=== PATIENT | female | born 1950 | race Caucasian/White ===

== ENCOUNTER 2020-03-06 14:11 | Emergency (ER) | payer MEDICARE, OTHER ==
[~2020-03-06 14:11] MED LIST: CEFDINIR300 MG PO; COZAAR100 MG PO; HYDRALAZINE25 MG PO; INSULIN PEN; KEFLEX250 MG PO; LANTUS **100 UNITS/ SC; LOSARTAN-HCTZ1 EAC1 PO; METFORMIN HCL500 MG PO; NORVASC5 MG PO; PROZAC20 MG PO; TOPROL XL100 MG PO; ULTRA-LIGHT RO1 EACH XX
[2020-03-06 15:34] LABS: BASOPHIL 0.5 % (0-2); EOSINOPHIL 1.7 % (0-7); HCT 37.1 % (37.0-47.0); HGB 12.4 g/dl (12.5-16.0); LYMPHOCYTE 14.2 % (15-48); MCH 28.7 pg (25.0-31.0); MCHC 33.4 g/dL (32.0-36.0); MCV 85.9 fL (78.0-100.0); MONOCYTE 7.4 % (0-12); MPV 8.5 fL (6.0-9.5); NEUTROPHIL 75.8 % (41-80); NRBC 0; PLT 324 K/uL (150-400); RBC 4.32 M/uL (4.20-5.40); RDW 13.9 % (11.5-14.0); WBC 8.2 K/uL (4.0-10.5)
[2020-03-06 15:53] LABS: ALBUMIN 2.6 g/dL (3.4-5.0); BILIRUBIN - TOTAL 0.4 mg/dL (0.2-1.0); CREATININE 1.04 mg/dL (0.51-0.95); GLOBULIN (CALCULATION) 4.2 g/dL; POTASSIUM 3.5 mmol/L (3.5-5.1); TOTAL PROTEIN 6.8 g/dL (6.4-8.2)
[2020-03-06 17:21] LABS: BILIRUBIN NEGATIVE (NEGATIVE); BLOOD NEGATIVE Ery/uL (NEGATIVE); CLARITY CLEAR (CLEAR); COLOR YELLOW (YELLOW); GLUCOSE (U) NORMAL (NORMAL); LEUKOCYTES NEGATIVE Leu/uL (NEGATIVE); NITRITE NEGATIVE (NEGATIVE); PROTEIN 2+ mg/dL (NEGATIVE); SPECIFIC GRAVITY 1.025 (1.001-1.030); UROBILINOGEN 0.2 mg/dL (0.2-1.0); pH 6.5 (5.0-9.0)
[2020-03-06 17:30] LABS: MUCOUS MODERATE; SQUAMOUS EPITHELIAL CELLS 20-50
== END 2020-03-06 18:10 | disposition home or self-care (01) ==
LOC: FER 14:11
PROVIDERS: Nurse Practitioner Family
DX: R42 Dizziness and giddiness (principal); E11.9 Type 2 diabetes mellitus without complications; I10 Essential (primary) hypertension; Z88.0 Allergy status to penicillin; Z88.8 Allergy status to other drugs, medicaments and biological substances; Z87.81 Personal history of (healed) traumatic fracture
CPT/HCPCS: 36415; 70450; 72125; 80053; 81001; 85025; 93005

== ENCOUNTER 2020-05-04 23:13 | Inpatient (IN) | payer MEDICARE, OTHER ==
[2020-05-05 01:09] LABS: BASOPHIL 0.6 % (0-2); EOSINOPHIL 2.3 % (0-7); HGB 11.6 g/dl (12.5-16.0); LYMPHOCYTE 19.4 % (15-48); MCHC 32.2 g/dL (32.0-36.0); MCV 86.7 fL (78.0-100.0); MONOCYTE 7.3 % (0-12); NEUTROPHIL 70.1 % (41-80); NRBC 0; PLT 340 K/uL (150-400); RBC 4.15 M/uL (4.20-5.40); RDW 13.7 % (11.5-14.0); WBC 6.6 K/uL (4.0-10.5)
[2020-05-05 01:47] LABS: ALBUMIN 2.5 g/dL (3.4-5.0); BILIRUBIN - TOTAL 0.2 mg/dL (0.2-1.0); BUN/CREAT RATIO (CALC) 21.5 RATIO; CREATININE 1.07 mg/dL (0.51-0.95); GLOBULIN (CALCULATION) 3.8 g/dL; MAGNESIUM 1.9 mg/dL (1.8-2.4); PHOSPHORUS 2.6 mg/dL (2.6-4.7); POTASSIUM 4.2 mmol/L (3.5-5.1); TOTAL PROTEIN 6.3 g/dL (6.4-8.2)
[2020-05-05 05:06] LABS: BILIRUBIN NEGATIVE (NEGATIVE); BLOOD TRACE-INTACT Ery/uL (NEGATIVE); CLARITY CLEAR (CLEAR); COLOR YELLOW (YELLOW); GLUCOSE (U) 3+ mg/dL (NORMAL); LEUKOCYTES NEGATIVE Leu/uL (NEGATIVE); NITRITE NEGATIVE (NEGATIVE); PROTEIN 2+ mg/dL (NEGATIVE); UROBILINOGEN 0.2 mg/dL (0.2-1.0)
[2020-05-05 05:08] LABS: LDH 183 U/L (81-234)
[2020-05-05 06:41] LABS: CORONAVIRUS 2019 SARS-COV-2 NEGATIVE (NEGATIVE); INFLUENZA A NAA NEGATIVE (NEGATIVE)
[2020-05-05 06:42] LABS: BUN/CREAT RATIO (CALC) 24.6 RATIO; CREATININE 1.14 mg/dL (0.51-0.95); POTASSIUM 3.8 mmol/L (3.5-5.1)
[2020-05-05 07:55] LABS: AMPHETAMINES NEGATIVE (NEGATIVE); BARBITURATES NEGATIVE (NEGATIVE); ECSTASY (MDMA) NEGATIVE (NEGATIVE); MARIJUANA (THC) NEGATIVE (NEGATIVE); METHADONE NEGATIVE (NEGATIVE); OPIATES NEGATIVE (NEGATIVE); OXYCODONE NEGATIVE (NEGATIVE)
[2020-05-05 10:29] LABS: LACTIC ACID 2.8 mmol/L (0.4-1.9)
[2020-05-05] MEDS ORDERED: CYMBALTA 30MG C30 MG PO (14:20)
[2020-05-05] MEDS ORDERED: KEFLEX250 MG PO (14:21)
[2020-05-05] MEDS ORDERED: LANTUS SOL100 UNIT/1 SC (14:22)
[2020-05-05] MEDS ORDERED: LOSARTAN-HCTZ1 EAC1 PO (14:23)
[2020-05-05] MEDS ORDERED: HYDRALAZINE 50M50 MG PO (14:23)
[2020-05-05] MEDS ORDERED: WELLBUTRIN XL150 MG PO (14:24)
[2020-05-05] MEDS ORDERED: PROZAC20 MG PO (14:24)
[2020-05-05 18:12] LABS: BUN/CREAT RATIO (CALC) 22.9 RATIO; CREATININE 0.96 mg/dL (0.51-0.95); POTASSIUM 3.6 mmol/L (3.5-5.1)
[2020-05-06 07:05] LABS: BASOPHIL 0.5 % (0-2); EOSINOPHIL 1.8 % (0-7); HCT 26.3 % (37.0-47.0); HGB 8.4 g/dl (12.5-16.0); LYMPHOCYTE 26.1 % (15-48); MCH 28.2 pg (25.0-31.0); MCHC 31.9 g/dL (32.0-36.0); MCV 88.3 fL (78.0-100.0); MONOCYTE 9.1 % (0-12); NEUTROPHIL 62.1 % (41-80); NRBC 0; PLT 273 K/uL (150-400); RBC 2.98 M/uL (4.20-5.40); RETICULOCYTE COUNT 2.3 % (1.0-2.0); WBC 9.8 K/uL (4.0-10.5)
[2020-05-06 07:26] LABS: IRON % SATURATION 11.2 %SAT (20-50)
[2020-05-06 07:53] LABS: BILIRUBIN - TOTAL 0.3 mg/dL (0.2-1.0); BUN/CREAT RATIO (CALC) 18.5 RATIO; CREATININE 0.92 mg/dL (0.51-0.95); GLOBULIN (CALCULATION) 3.1 g/dL; MAGNESIUM 1.6 mg/dL (1.8-2.4); PHOSPHORUS 2.6 mg/dL (2.6-4.7); POTASSIUM 3.6 mmol/L (3.5-5.1); TOTAL PROTEIN 5.1 g/dL (6.4-8.2)
--- NOTE | 2020-05-07 09:26 | NUR ---
05/07/20 Ms. Rausch lives with her sister. She receives [facility] through [facility]; [facility]. They have provided a reader / projector. She also receives [employer]. Ms. Lubin has a cane, wc, and rw. - She was provided with information re: [facility] and diabetic education resources.
[2020-05-08 06:57] LABS: BASOPHIL 0.5 % (0-2); EOSINOPHIL 2.5 % (0-7); HCT 25.8 % (37.0-47.0); HGB 8.4 g/dl (12.5-16.0); LYMPHOCYTE 28.2 % (15-48); MCH 28.3 pg (25.0-31.0); MCHC 32.6 g/dL (32.0-36.0); MCV 86.9 fL (78.0-100.0); NEUTROPHIL 59.6 % (41-80); NRBC 0; PLT 300 K/uL (150-400); RBC 2.97 M/uL (4.20-5.40); RDW 13.7 % (11.5-14.0); WBC 8.7 K/uL (4.0-10.5)
[2020-05-08 07:13] LABS: BUN/CREAT RATIO (CALC) 18.6 RATIO; CREATININE 1.02 mg/dL (0.51-0.95); POTASSIUM 3.7 mmol/L (3.5-5.1)
[2020-05-08] MEDS ORDERED: COZAAR100 MG PO (11:56)
== END 2020-05-08 14:07 | disposition home or self-care (01) | DRG 637 ==
LOC: FER 23:13 → FICU 05-05 10:52 → FMS 05-05 10:52 → FICU 05-06 09:03 → FMS 05-06 09:55
PROVIDERS: Emergency Medicine; Emergency Medicine Emergency Medical Services; Internal Medicine; ADMIT Internal Medicine
DX: E11.00 Type 2 diabetes mellitus with hyperosmolarity without nonketotic hyperglycemic-hyperosmolar coma (NKHHC) (principal); I21.4 Non-ST elevation (NSTEMI) myocardial infarction; N17.9 Acute kidney failure, unspecified; Z68.42 Body mass index [BMI] 45.0-49.9, adult; Z20.822 Contact with and (suspected) exposure to COVID-19; E66.01 Morbid (severe) obesity due to excess calories; H54.7 Unspecified visual loss; D64.9 Anemia, unspecified; I16.0 Hypertensive urgency; R53.1 Weakness; E86.0 Dehydration; G89.29 Other chronic pain; I10 Essential (primary) hypertension; R25.2 Cramp and spasm; Z88.0 Allergy status to penicillin; Z88.8 Allergy status to other drugs, medicaments and biological substances; Z79.4 Long term (current) use of insulin; Z79.899 Other long term (current) drug therapy; W19.XXXA Unspecified fall, initial encounter
CPT/HCPCS: 36415; 36600; 70450; 71045; 71275; 72131; 72192; 73552; 73590; 80048; 80053; 80305; 81001; 82009; 82550; 82607; 82728; 82803; 82962; 83036; 83540; 83550; 83605; 83615; 83735; 83880; 84100; 84145; 84484; 85025; 85379; 87040; 87088; 93005; 94010; 94762; 97110; 97116; 97163; 97167; 97530; 97530-GP; 97535; J1650; J1885; J3360; J3475; J3480; J7030; J7120; Q9967; U0002

== ENCOUNTER 2020-05-09 20:09 | Day surgery (SDCO) | payer MEDICARE, OTHER ==
[~2020-05-09] VITALS: Ht 170.2 cm; Wt 134.9 kg
[~2020-05-09 20:09] MED LIST changes: +CYMBALTA 30MG C30 MG PO; +HYDRALAZINE 50M50 MG PO; +LANTUS SOL100 UNIT/1 SC; +WELLBUTRIN XL150 MG PO
[2020-05-09 23:12] LABS: BASOPHIL 0.4 % (0-2); EOSINOPHIL 1.7 % (0-7); HCT 28.1 % (37.0-47.0); HGB 9.1 g/dl (12.5-16.0); LYMPHOCYTE 15.5 % (15-48); MCH 28.9 pg (25.0-31.0); MCHC 32.4 g/dL (32.0-36.0); MCV 89.2 fL (78.0-100.0); MONOCYTE 7.2 % (0-12); MPV 8.9 fL (6.0-9.5); NEUTROPHIL 74.6 % (41-80); NRBC 0; PLT 392 K/uL (150-400); RBC 3.15 M/uL (4.20-5.40)
[2020-05-09 23:29] LABS: ALBUMIN 2.3 g/dL (3.4-5.0); BILIRUBIN - TOTAL 0.6 mg/dL (0.2-1.0); BUN/CREAT RATIO (CALC) 26.1 RATIO; CREATININE 1.11 mg/dL (0.51-0.95); GLOBULIN (CALCULATION) 3.8 g/dL; POTASSIUM 4.3 mmol/L (3.5-5.1); TOTAL PROTEIN 6.1 g/dL (6.4-8.2)
[2020-05-10 00:57] LABS: BILIRUBIN NEGATIVE (NEGATIVE); BLOOD 1+ Ery/uL (NEGATIVE); CLARITY CLEAR (CLEAR); COLOR YELLOW (YELLOW); GLUCOSE (U) TRACE mg/dL (NORMAL); LEUKOCYTES 1+ Leu/uL (NEGATIVE); NITRITE NEGATIVE (NEGATIVE); PROTEIN 3+ mg/dL (NEGATIVE); SPECIFIC GRAVITY >=1.030 (1.001-1.030); UROBILINOGEN 0.2 mg/dL (0.2-1.0)
[2020-05-10 01:04] LABS: BACTERIA 1+; URINARY WBC TNTC
[2020-05-10] MEDS ORDERED: METFORMIN HCL500 MG PO (02:37)
[2020-05-10 07:58] LABS: BASOPHIL 0.5 % (0-2); EOSINOPHIL 2.5 % (0-7); HCT 23.8 % (37.0-47.0); HGB 7.8 g/dl (12.5-16.0); LYMPHOCYTE 26.3 % (15-48); MCH 28.8 pg (25.0-31.0); MCHC 32.8 g/dL (32.0-36.0); MCV 87.8 fL (78.0-100.0); MONOCYTE 8.6 % (0-12); MPV 8.6 fL (6.0-9.5); NEUTROPHIL 61.7 % (41-80); NRBC 0; PLT 337 K/uL (150-400); RBC 2.71 M/uL (4.20-5.40); RDW 13.8 % (11.5-14.0); WBC 7.7 K/uL (4.0-10.5)
[2020-05-10 08:22] LABS: BUN/CREAT RATIO (CALC) 25.2 RATIO; CREATININE 1.07 mg/dL (0.51-0.95); POTASSIUM 3.8 mmol/L (3.5-5.1)
--- NOTE | 2020-05-10 15:58 | NUR ---
05/10/20 Ms. Lubin was discharged home on 05/08 and returned after having a fall on 05/10/20. She has requested a SNF or acute care placement. [facility]errals [facility] to [facility] [place] and [facility] SNF and acute ted.
[2020-05-11 05:45] LABS: BASOPHIL 0.4 % (0-2); EOSINOPHIL 2.6 % (0-7); HCT 23.2 % (37.0-47.0); HGB 7.7 g/dl (12.5-16.0); LYMPHOCYTE 30.7 % (15-48); MCH 29.3 pg (25.0-31.0); MCHC 33.2 g/dL (32.0-36.0); MCV 88.2 fL (78.0-100.0); MONOCYTE 9.6 % (0-12); MPV 8.8 fL (6.0-9.5); NEUTROPHIL 56.4 % (41-80); NRBC 0; PLT 372 K/uL (150-400); RBC 2.63 M/uL (4.20-5.40); RDW 13.9 % (11.5-14.0); WBC 7.4 K/uL (4.0-10.5)
[2020-05-11 06:03] LABS: CREATININE 1.16 mg/dL (0.51-0.95); POTASSIUM 3.8 mmol/L (3.5-5.1)
--- NOTE | 2020-05-13 09:23 | NUR ---
05/13/20 [facility] has accepted patient for admission today. Patient reports her friend Tatiana will provide transportation. A report was given to Dr. Zimmer and Etelvina MS RN.
[2020-05-13] MEDS ORDERED: POLY-IRON150 MG PO (14:31)
--- NOTE | 2020-05-13 15:10 | NUR ---
CALLED AND SPOKE TO SHIV VILLALBA AT [facility] TO GIVE REPORT ON PATIENT GAVE FULL REPORT ALL QUESTIONS WERE ANSWERED PRIOR TO HANGING UP PHONE CALL. STATED I WOULD BE FAXING OVER THE DISCHARGE SUMMARY AND COPIED CHART
--- NOTE | 2020-05-13 16:02 | NUR ---
CALLED AND SPOKE TO SHIV VILLALBA TO VERIFY FAXED OVER INFORMATION AND NOTIFY OF PATIENT LEAVING THE FLOOR
== END 2020-05-13 16:07 ==
LOC: FER 20:09 → FMS 05-10 00:54
PROVIDERS: Emergency Medicine; Nurse Practitioner; ADMIT Internal Medicine
DX: N17.9 Acute kidney failure, unspecified (principal); N18.30 Chronic kidney disease, stage 3 unspecified; N30.00 Acute cystitis without hematuria; I12.9 Hypertensive chronic kidney disease with stage 1 through stage 4 chronic kidney disease, or unspecified chronic kidney disease; E11.22 Type 2 diabetes mellitus with diabetic chronic kidney disease; D50.9 Iron deficiency anemia, unspecified; Z79.4 Long term (current) use of insulin; Z98.890 Other specified postprocedural states; Z88.8 Allergy status to other drugs, medicaments and biological substances; Z88.0 Allergy status to penicillin; Z86.19 Personal history of other infectious and parasitic diseases; Z79.899 Other long term (current) drug therapy; Z20.822 Contact with and (suspected) exposure to COVID-19
CPT/HCPCS: 36415; 73020; 73070; 80048; 80053; 81001; 82962; 85025; 87076; 87088; 87186; 97110; 97116; 97162; 97166; 97530; 97530-GP; 97535; G0378; J1650; J1956; J2916; J3490; J7030

== ENCOUNTER 2020-06-27 10:22 | Emergency (ER) | payer MEDICARE, OTHER ==
[~2020-06-27 10:22] MED LIST changes: +POLY-IRON150 MG PO
== END 2020-06-27 14:43 | disposition home or self-care (01) ==
LOC: FER 10:22
DX: S01.411A Laceration without foreign body of right cheek and temporomandibular area, initial encounter (principal); W18.2XXA Fall in (into) shower or empty bathtub, initial encounter; Y92.002 Bathroom of unspecified non-institutional (private) residence as the place of occurrence of the external cause
CPT/HCPCS: 70450; 70486

== ENCOUNTER 2020-07-04 15:15 | Emergency (ER) | payer MEDICARE, OTHER | END 2020-07-04 16:43 | disposition home or self-care (01) | LOC: FER 15:15 | DX: I10 Essential (primary) hypertension (principal); I48.91 Unspecified atrial fibrillation; E11.9 Type 2 diabetes mellitus without complications; Z86.59 Personal history of other mental and behavioral disorders | CPT/HCPCS: 99283 ==

== ENCOUNTER 2020-09-30 08:47 | Emergency (ER) | payer MEDICARE, OTHER ==
[2020-09-30 10:14] LABS: INR 1.01 (0.9-1.2); PROTHROMBIN TIME 12.7 SECONDS (11.8-13.4); PTT 25.2 SECONDS (24.4-34.7)
[2020-09-30 10:44] LABS: ALBUMIN 3.2 g/dL (3.4-5.0); BILIRUBIN - TOTAL 0.4 mg/dL (0.2-1.0); BUN/CREAT RATIO (CALC) 32.2 RATIO; CREATININE 1.21 mg/dL (0.51-0.95); GLOBULIN (CALCULATION) 3.4 g/dL; POTASSIUM 4.5 mmol/L (3.5-5.1); TOTAL PROTEIN 6.6 g/dL (6.4-8.2)
[2020-09-30 10:53] LABS: LACTIC ACID 1.5 mmol/L (0.4-1.9)
[2020-09-30 11:24] LABS: BILIRUBIN NEGATIVE (NEGATIVE); BLOOD TRACE-INTACT Ery/uL (NEGATIVE); CLARITY CLEAR (CLEAR); COLOR YELLOW (YELLOW); GLUCOSE (U) 3+ mg/dL (NORMAL); LEUKOCYTES NEGATIVE Leu/uL (NEGATIVE); NITRITE NEGATIVE (NEGATIVE); PROTEIN 2+ mg/dL (NEGATIVE); UROBILINOGEN 0.2 mg/dL (0.2-1.0); pH 5.5 (5.0-9.0)
[2020-09-30 11:34] LABS: AMPHETAMINES NEGATIVE (NEGATIVE); BARBITURATES NEGATIVE (NEGATIVE); ECSTASY (MDMA) NEGATIVE (NEGATIVE); MARIJUANA (THC) NEGATIVE (NEGATIVE); METHADONE NEGATIVE (NEGATIVE); OPIATES NEGATIVE (NEGATIVE); OXYCODONE NEGATIVE (NEGATIVE)
[2020-09-30 11:43] LABS: BACTERIA TRACE; URINARY RBC RARE; URINARY WBC RARE
[2020-09-30 12:33] LABS: BASOPHIL 0.6 % (0-2); HCT 35.4 % (37.0-47.0); HGB 11.8 g/dl (12.5-16.0); LYMPHOCYTE 25.4 % (15-48); MCH 28.4 pg (25.0-31.0); MCHC 33.3 g/dL (32.0-36.0); MCV 85.1 fL (78.0-100.0); MONOCYTE 9.1 % (0-12); MPV 9.1 fL (6.0-9.5); NEUTROPHIL 60.6 % (41-80); NRBC 0; PLT 314 K/uL (150-400); RBC 4.16 M/uL (4.20-5.40); RDW 13.8 % (11.5-14.0); WBC 7.2 K/uL (4.0-10.5)
== END 2020-09-30 14:44 | disposition home or self-care (01) ==
LOC: FER 08:47
PROVIDERS: Emergency Medicine
DX: E11.65 Type 2 diabetes mellitus with hyperglycemia (principal); R25.2 Cramp and spasm; I10 Essential (primary) hypertension; Z88.0 Allergy status to penicillin; Z79.84 Long term (current) use of oral hypoglycemic drugs; Z20.822 Contact with and (suspected) exposure to COVID-19
CPT/HCPCS: 36415; 36600; 71045; 80053; 80305; 81001; 82009; 82803; 83605; 84484; 85025; 85610; 85730; 87040; 87088; 93005; J7030; U0002

== ENCOUNTER 2021-01-25 15:08 | Emergency (ER) | payer MEDICARE, OTHER | END 2021-01-25 22:42 | disposition home or self-care (01) | LOC: FER 15:08 | DX: K52.9 Noninfective gastroenteritis and colitis, unspecified (principal); R53.83 Other fatigue; Z88.0 Allergy status to penicillin; Z88.8 Allergy status to other drugs, medicaments and biological substances ==

== ENCOUNTER 2021-04-09 17:54 | Day surgery (SDCO) | payer MEDICARE, OTHER ==
[~2021-04-09] VITALS: Ht 170.2 cm; Wt 120.9 kg
[2021-04-09 20:59] LABS: BASOPHIL 0.8 % (0-2); EOSINOPHIL 2.6 % (0-7); HCT 38.8 % (37.0-47.0); HGB 13.2 g/dl (12.5-16.0); LYMPHOCYTE 28.9 % (15-48); MCH 28.3 pg (25.0-31.0); MCV 83.3 fL (78.0-100.0); MONOCYTE 6.9 % (0-12); MPV 9.3 fL (6.0-9.5); NEUTROPHIL 60.5 % (41-80); NRBC 0; PLT 299 K/uL (150-400); RBC 4.66 M/uL (4.20-5.40); RDW 13.2 % (11.5-14.0); WBC 6.1 K/uL (4.0-10.5)
[2021-04-09 21:41] LABS: BUN/CREAT RATIO (CALC) 25.3 RATIO; CREATININE 1.46 mg/dL (0.51-0.95); POTASSIUM 4.7 mmol/L (3.5-5.1)
[2021-04-10 01:28] LABS: BUN/CREAT RATIO (CALC) 25.5 RATIO; CREATININE 1.37 mg/dL (0.51-0.95); POTASSIUM 4.7 mmol/L (3.5-5.1)
[2021-04-10 02:42] LABS: BILIRUBIN NEGATIVE (NEGATIVE); BLOOD TRACE-INTACT Ery/uL (NEGATIVE); CLARITY CLEAR (CLEAR); COLOR YELLOW (YELLOW); GLUCOSE (U) 3+ mg/dL (NORMAL); LEUKOCYTES NEGATIVE Leu/uL (NEGATIVE); NITRITE NEGATIVE (NEGATIVE); PROTEIN 2+ mg/dL (NEGATIVE); UROBILINOGEN 0.2 mg/dL (0.2-1.0); pH 6.5 (5.0-9.0)
[2021-04-10 02:50] LABS: BACTERIA TRACE; URINARY WBC RARE
[2021-04-10 04:55] LABS: BUN/CREAT RATIO (CALC) 24.8 RATIO; CREATININE 1.29 mg/dL (0.51-0.95); POTASSIUM 4.2 mmol/L (3.5-5.1)
[2021-04-10 10:01] LABS: BASOPHIL 0.8 % (0-2); EOSINOPHIL 3.1 % (0-7); HCT 36.9 % (37.0-47.0); HGB 12.3 g/dl (12.5-16.0); LYMPHOCYTE 43.2 % (15-48); MCH 28.1 pg (25.0-31.0); MCHC 33.3 g/dL (32.0-36.0); MCV 84.4 fL (78.0-100.0); MONOCYTE 8.6 % (0-12); MPV 8.8 fL (6.0-9.5); NEUTROPHIL 43.9 % (41-80); NRBC 0; PLT 264 K/uL (150-400); RBC 4.37 M/uL (4.20-5.40); RDW 13.2 % (11.5-14.0); WBC 5.2 K/uL (4.0-10.5)
[2021-04-10 10:24] LABS: ALBUMIN 2.8 g/dL (3.4-5.0); BILIRUBIN - TOTAL 0.2 mg/dL (0.2-1.0); BUN/CREAT RATIO (CALC) 24.1 RATIO; CREATININE 1.16 mg/dL (0.51-0.95); GLOBULIN (CALCULATION) 3.4 g/dL; PHOSPHORUS 3.1 mg/dL (2.6-4.7); POTASSIUM 3.5 mmol/L (3.5-5.1); TOTAL PROTEIN 6.2 g/dL (6.4-8.2)
--- NOTE | 2021-04-10 13:09 | NUR ---
04/10 Ms. Lubin is a 70 y/o woman who lives with her sister. Ms. Lubin is legally blind. She has worked with [facility]. - Patient has a cane. Patient uses cabs, a friend, and CATS for transportation. She is interested in living alone. [facility]
[2021-04-11 06:23] LABS: BASOPHIL 0.8 % (0-2); EOSINOPHIL 3.6 % (0-7); HGB 11.8 g/dl (12.5-16.0); LYMPHOCYTE 44.8 % (15-48); MCH 28.1 pg (25.0-31.0); MCHC 33.7 g/dL (32.0-36.0); MCV 83.3 fL (78.0-100.0); MONOCYTE 6.5 % (0-12); MPV 8.6 fL (6.0-9.5); NEUTROPHIL 44.1 % (41-80); NRBC 0; PLT 243 K/uL (150-400); RDW 13.3 % (11.5-14.0); WBC 5.3 K/uL (4.0-10.5)
[2021-04-11 06:42] LABS: BUN/CREAT RATIO (CALC) 19.8 RATIO; CREATININE 1.06 mg/dL (0.51-0.95); POTASSIUM 3.5 mmol/L (3.5-5.1)
[2021-04-11] MEDS ORDERED: WELLBUTRIN XL150 MG PO (12:30)
[2021-04-11] MEDS ORDERED: LANTUS SOL100 UNIT/1 SC (12:30)
[2021-04-11] MEDS ORDERED: HYDRALAZINE 50M50 MG PO (12:30)
[2021-04-11] MEDS ORDERED: COZAAR100 MG PO (12:30)
[2021-04-11] MEDS ORDERED: METFORMIN HCL500 MG PO (12:30)
[2021-04-11] MEDS ORDERED: PROZAC20 MG PO (12:30)
[2021-04-11] MEDS ORDERED: POLY-IRON150 MG PO (12:30)
== END 2021-04-11 15:30 | disposition home or self-care (01) ==
LOC: FER 17:54 → FMS 04-10 07:20 → FOFB 04-10 07:20 → FMS 04-10 11:14
PROVIDERS: Family Medicine; Internal Medicine; Nurse Practitioner; Nurse Practitioner Family; ADMIT Internal Medicine
DX: E86.0 Dehydration (principal); N17.9 Acute kidney failure, unspecified; E11.22 Type 2 diabetes mellitus with diabetic chronic kidney disease; E11.65 Type 2 diabetes mellitus with hyperglycemia; I12.9 Hypertensive chronic kidney disease with stage 1 through stage 4 chronic kidney disease, or unspecified chronic kidney disease; N18.30 Chronic kidney disease, stage 3 unspecified; M79.604 Pain in right leg; R20.2 Paresthesia of skin; D64.9 Anemia, unspecified; F32.A Depression, unspecified; E66.01 Morbid (severe) obesity due to excess calories; H54.40 Blindness, one eye, unspecified eye; Z20.822 Contact with and (suspected) exposure to COVID-19; Z79.4 Long term (current) use of insulin; Z88.0 Allergy status to penicillin; Z88.8 Allergy status to other drugs, medicaments and biological substances; Z91.018 Allergy to other foods; Z83.3 Family history of diabetes mellitus
CPT/HCPCS: 36415; 70450; 71045; 80048; 80053; 81001; 82009; 83036; 83735; 83880; 84100; 85025; 93971; 94010; G0378; J1650; J1815; J7030; U0002

== ENCOUNTER 2021-05-23 21:54 | Day surgery (SDCO) | payer MEDICARE, OTHER ==
[~2021-05-23] VITALS: Ht 170.2 cm; Wt 123.9 kg
[2021-05-23 22:23] LABS: BASOPHIL 0.7 % (0-2); EOSINOPHIL 1.7 % (0-7); HCT 41.5 % (37.0-47.0); LYMPHOCYTE 25.9 % (15-48); MCH 28.2 pg (25.0-31.0); MCHC 33.7 g/dL (32.0-36.0); MCV 83.7 fL (78.0-100.0); MONOCYTE 6.9 % (0-12); MPV 8.7 fL (6.0-9.5); NEUTROPHIL 64.6 % (41-80); NRBC 0; PLT 350 K/uL (150-400); RBC 4.96 M/uL (4.20-5.40); RDW 13.8 % (11.5-14.0); WBC 8.2 K/uL (4.0-10.5)
[2021-05-23 22:27] LABS: INR 1.01 (0.9-1.2); PROTHROMBIN TIME 12.7 SECONDS (11.8-13.4); PTT 29.9 SECONDS (24.4-34.7)
[2021-05-23 22:50] LABS: ALKALINE PHOSHATASE 96 U/L (46-116); ALT 21 U/L (14-59); AST 13 U/L (15-37); BILIRUBIN - TOTAL 0.4 mg/dL (0.2-1.0); BUN 30 mg/dL (7-18); BUN/CREAT RATIO (CALC) 23.1 RATIO; CHLORIDE 103 mmol/L (98-107); CO2 (BICARBONATE) 25 mmol/L (21-32); GLOBULIN (CALCULATION) 3.7 g/dL; GLUCOSE 396 mg/dL (74-106); LIPASE 65 U/L (73-393); MAGNESIUM 1.6 mg/dL (1.8-2.4); POTASSIUM 3.7 mmol/L (3.5-5.1); TOTAL PROTEIN 6.7 g/dL (6.4-8.2)
[2021-05-23 22:56] LABS: ACETAMINOPHEN (TYLENOL) < 2.0 ug/mL (10.0-30.0)
[2021-05-23 23:28] LABS: AMPHETAMINES NEGATIVE (NEGATIVE); BARBITURATES NEGATIVE (NEGATIVE); BILIRUBIN NEGATIVE (NEGATIVE); BLOOD NEGATIVE Ery/uL (NEGATIVE); CLARITY CLEAR (CLEAR); COLOR YELLOW (YELLOW); ECSTASY (MDMA) NEGATIVE (NEGATIVE); GLUCOSE (U) 3+ mg/dL (NORMAL); LEUKOCYTES NEGATIVE Leu/uL (NEGATIVE); MARIJUANA (THC) NEGATIVE (NEGATIVE); METHADONE NEGATIVE (NEGATIVE); NITRITE NEGATIVE (NEGATIVE); OPIATES NEGATIVE (NEGATIVE); OXYCODONE NEGATIVE (NEGATIVE); PROTEIN 3+ mg/dL (NEGATIVE); SPECIFIC GRAVITY 1.025 (1.001-1.030); UROBILINOGEN 0.2 mg/dL (0.2-1.0)
[2021-05-23 23:34] LABS: BACTERIA TRACE; MUCOUS TRACE; URINARY WBC RARE
[2021-05-23 23:38] LABS: CORONAVIRUS 2019 SARS-COV-2 NEGATIVE (NEGATIVE); INFLUENZA A NAA NEGATIVE (NEGATIVE)
[2021-05-24 06:36] LABS: HCT 38.9 % (37.0-47.0); MCH 28.3 pg (25.0-31.0); MCHC 33.4 g/dL (32.0-36.0); MCV 84.6 fL (78.0-100.0); MPV 8.7 fL (6.0-9.5); RBC 4.6 M/uL (4.20-5.40); WBC 7.9 K/uL (4.0-10.5)
[2021-05-24 07:00] LABS: ALBUMIN 2.7 g/dL (3.4-5.0); BILIRUBIN - TOTAL 0.2 mg/dL (0.2-1.0); BUN/CREAT RATIO (CALC) 24.8 RATIO; CREATININE 1.17 mg/dL (0.51-0.95); GLOBULIN (CALCULATION) 3.5 g/dL; MAGNESIUM 1.7 mg/dL (1.8-2.4); PHOSPHORUS 3.1 mg/dL (2.6-4.7); POTASSIUM 3.6 mmol/L (3.5-5.1); TOTAL PROTEIN 6.2 g/dL (6.4-8.2)
[2021-05-25 06:24] LABS: BASOPHIL 0.6 % (0-2); EOSINOPHIL 1.7 % (0-7); HCT 36.3 % (37.0-47.0); LYMPHOCYTE 36.3 % (15-48); MCH 28.4 pg (25.0-31.0); MCHC 33.1 g/dL (32.0-36.0); MCV 85.8 fL (78.0-100.0); MONOCYTE 9.5 % (0-12); MPV 8.4 fL (6.0-9.5); NEUTROPHIL 51.7 % (41-80); NRBC 0; PLT 286 K/uL (150-400); RBC 4.23 M/uL (4.20-5.40); RDW 14.3 % (11.5-14.0); WBC 6.6 K/uL (4.0-10.5)
[2021-05-25 06:52] LABS: BUN/CREAT RATIO (CALC) 18.6 RATIO; CREATININE 1.29 mg/dL (0.51-0.95); POTASSIUM 2.7 mmol/L (3.5-5.1)
[2021-05-26 06:59] LABS: BASOPHIL 0.5 % (0-2); EOSINOPHIL 2.3 % (0-7); HCT 36.4 % (37.0-47.0); HGB 11.9 g/dl (12.5-16.0); MCH 28.3 pg (25.0-31.0); MCHC 32.7 g/dL (32.0-36.0); MCV 86.7 fL (78.0-100.0); MPV 8.3 fL (6.0-9.5); NEUTROPHIL 53.9 % (41-80); NRBC 0; PLT 273 K/uL (150-400); RDW 14.5 % (11.5-14.0); WBC 7.3 K/uL (4.0-10.5)
[2021-05-26 07:14] LABS: BUN/CREAT RATIO (CALC) 17.9 RATIO; CREATININE 1.17 mg/dL (0.51-0.95); POTASSIUM 3.6 mmol/L (3.5-5.1)
[2021-05-26] MEDS ORDERED: LANTUS SOL100 UNIT/1 SC (11:54)
[2021-05-26] MEDS ORDERED: NOVOLOG FL100 UNIT/1 SC (11:54)
[2021-05-26] MEDS ORDERED: OZEMPIC0.25 MG/0. SC (13:06)
[2021-05-26] MEDS ORDERED: NORVASC5 MG PO (16:58)
== END 2021-05-26 18:22 | disposition home or self-care (01) ==
LOC: FER 21:54 → FMS 23:51
PROVIDERS: Internal Medicine; Nurse Practitioner; ADMIT Family Medicine
DX: E11.65 Type 2 diabetes mellitus with hyperglycemia (principal); I12.9 Hypertensive chronic kidney disease with stage 1 through stage 4 chronic kidney disease, or unspecified chronic kidney disease; E11.22 Type 2 diabetes mellitus with diabetic chronic kidney disease; N18.2 Chronic kidney disease, stage 2 (mild); N17.9 Acute kidney failure, unspecified; G93.41 Metabolic encephalopathy; W19.XXXA Unspecified fall, initial encounter; Z20.822 Contact with and (suspected) exposure to COVID-19; Z79.4 Long term (current) use of insulin; Z79.899 Other long term (current) drug therapy; Z88.0 Allergy status to penicillin; Z88.8 Allergy status to other drugs, medicaments and biological substances; Z91.018 Allergy to other foods
CPT/HCPCS: 36415; 70450; 71250; 72125; 80048; 80053; 80061; 80305; 81001; 82140; 82550; 83036; 83605; 83690; 83735; 83880; 84100; 84145; 84439; 84443; 84484; 85025; 85610; 85730; 87040; 87077; 93005; 94760; 94762; G0378; G0480; J1650; J1815; J3370; J7030; J7040; U0002

== ENCOUNTER 2021-07-19 22:16 | Day surgery (SDCO) | payer MEDICARE, OTHER ==
[~2021-07-19] VITALS: Ht 170.2 cm; Wt 126.1 kg
[~2021-07-19 22:16] MED LIST changes: +NOVOLOG FL100 UNIT/1 SC; +OZEMPIC0.25 MG/0. SC
[2021-07-19 23:13] LABS: BASOPHIL 0.5 % (0-2); EOSINOPHIL 0.3 % (0-7); HCT 36.9 % (37.0-47.0); HGB 12.2 g/dl (12.5-16.0); LYMPHOCYTE 14.4 % (15-48); MCH 29.3 pg (25.0-31.0); MCHC 33.1 g/dL (32.0-36.0); MCV 88.7 fL (78.0-100.0); MONOCYTE 4.8 % (0-12); MPV 8.7 fL (6.0-9.5); NEUTROPHIL 79.7 % (41-80); NRBC 0; PLT 344 K/uL (150-400); RBC 4.16 M/uL (4.20-5.40); RDW 13.7 % (11.5-14.0); WBC 9.5 K/uL (4.0-10.5)
[2021-07-19 23:29] LABS: ALBUMIN 2.8 g/dL (3.4-5.0); BILIRUBIN - TOTAL 0.2 mg/dL (0.2-1.0); BUN/CREAT RATIO (CALC) 33.6 RATIO; CREATININE 1.1 mg/dL (0.51-0.95); GLOBULIN (CALCULATION) 3.6 g/dL; POTASSIUM 3.9 mmol/L (3.5-5.1); TOTAL PROTEIN 6.4 g/dL (6.4-8.2)
[2021-07-20] LABS: BILIRUBIN NEGATIVE (NEGATIVE); BLOOD NEGATIVE Ery/uL (NEGATIVE); CLARITY CLEAR (CLEAR); COLOR YELLOW (YELLOW); GLUCOSE (U) NORMAL (NORMAL); LEUKOCYTES NEGATIVE Leu/uL (NEGATIVE); NITRITE NEGATIVE (NEGATIVE); PROTEIN 2+ mg/dL (NEGATIVE); SPECIFIC GRAVITY >=1.030 (1.001-1.030); UROBILINOGEN 0.2 mg/dL (0.2-1.0)
[2021-07-20 00:06] LABS: BACTERIA 2+
[2021-07-20 06:28] LABS: BASOPHIL 0.5 % (0-2); HCT 35.2 % (37.0-47.0); HGB 11.5 g/dl (12.5-16.0); LYMPHOCYTE 27.6 % (15-48); MCH 28.8 pg (25.0-31.0); MCHC 32.7 g/dL (32.0-36.0); MCV 88.2 fL (78.0-100.0); MONOCYTE 7.4 % (0-12); MPV 8.6 fL (6.0-9.5); NRBC 0; PLT 318 K/uL (150-400); RBC 3.99 M/uL (4.20-5.40); RDW 13.6 % (11.5-14.0); WBC 8.8 K/uL (4.0-10.5)
[2021-07-20 07:03] LABS: BUN/CREAT RATIO (CALC) 29.8 RATIO; CREATININE 1.04 mg/dL (0.51-0.95); POTASSIUM 3.6 mmol/L (3.5-5.1)
[2021-07-21 06:24] LABS: BASOPHIL 0.4 % (0-2); EOSINOPHIL 2.6 % (0-7); HCT 35.2 % (37.0-47.0); HGB 11.3 g/dl (12.5-16.0); MCH 28.5 pg (25.0-31.0); MCHC 32.1 g/dL (32.0-36.0); MCV 88.9 fL (78.0-100.0); MONOCYTE 9.5 % (0-12); MPV 8.6 fL (6.0-9.5); NEUTROPHIL 53.2 % (41-80); NRBC 0; PLT 297 K/uL (150-400); RBC 3.96 M/uL (4.20-5.40); RDW 13.6 % (11.5-14.0); WBC 7.3 K/uL (4.0-10.5)
[2021-07-21 06:53] LABS: BUN/CREAT RATIO (CALC) 23.3 RATIO; CREATININE 1.2 mg/dL (0.51-0.95); POTASSIUM 3.5 mmol/L (3.5-5.1)
[2021-07-21] MEDS ORDERED: GLUCAGON EMERGEN1 M2 IM (10:40)
[2021-07-21] MEDS ORDERED: LANTUS SOL100 UNIT/1 SC (10:40)
== END 2021-07-21 11:35 | disposition home or self-care (01) ==
LOC: FER 22:16 → FMS 07-20 02:55
PROVIDERS: Internal Medicine; Nurse Practitioner Acute Care; ADMIT Family Medicine
DX: E11.649 Type 2 diabetes mellitus with hypoglycemia without coma (principal); E11.22 Type 2 diabetes mellitus with diabetic chronic kidney disease; E11.65 Type 2 diabetes mellitus with hyperglycemia; I12.9 Hypertensive chronic kidney disease with stage 1 through stage 4 chronic kidney disease, or unspecified chronic kidney disease; N18.30 Chronic kidney disease, stage 3 unspecified; L84 Corns and callosities; E86.0 Dehydration; R19.7 Diarrhea, unspecified; R60.0 Localized edema; D50.9 Iron deficiency anemia, unspecified; R82.71 Bacteriuria; H54.7 Unspecified visual loss; R94.31 Abnormal electrocardiogram [ECG] [EKG]; E66.01 Morbid (severe) obesity due to excess calories; W13.3XXA Fall through floor, initial encounter; Z20.822 Contact with and (suspected) exposure to COVID-19; Z88.0 Allergy status to penicillin; Z88.8 Allergy status to other drugs, medicaments and biological substances; Z91.018 Allergy to other foods
CPT/HCPCS: 36415; 80048; 80053; 81001; 82962; 83036; 83690; 83880; 84145; 84484; 85025; 93005; G0378; J1650; U0002